=== PATIENT | female | born 1960 | race Caucasian/White ===

== ENCOUNTER 2017-04-13 13:36 | Emergency (ER) | payer OTHER ==
[~2017-04-13] VITALS: Ht 170.2 cm; Wt 108.3 kg
[~2017-04-13 13:36] MED LIST: CIPRO500 MG PO; CRESTOR40 MG PO; FLAGYL500 MG PO; INDERAL10 MG PO; IRON325 M1 PO; LEVOXYL137 MCG PO; MACRODANTIN25 MG PO; PRILOSEC40 MG PO; PROBIOTIC1 EAC1 PO; PROPRANOLOL HCL80 MG PO
[2017-04-13 14:34] VITALS: BP 146/88
== END 2017-04-13 14:50 | disposition home or self-care (01) ==
LOC: EME 13:36
DX: G43.909 Migraine, unspecified, not intractable, without status migrainosus (principal); E78.5 Hyperlipidemia, unspecified
CPT/HCPCS: 99281; 99283

== ENCOUNTER → 2017-05-15 | Outpatient (CLI) | payer OTHER | END | disposition home or self-care (01) | LOC: NUC 04-28 07:30 | DX: R10.11 Right upper quadrant pain (principal) | CPT/HCPCS: 78226; A9537 ==